=== PATIENT | male | born 1945 | race Caucasian/White ===

== ENCOUNTER 2017-09-05 13:40 | Emergency (ER) | payer OTHER | END 2017-09-05 15:46 | disposition home or self-care (01) | LOC: D.ER 13:40 | DX: T18.128A Food in esophagus causing other injury, initial encounter (principal); X58.XXXA Exposure to other specified factors, initial encounter; Y93.89 Activity, other specified; Y92.019 Unspecified place in single-family (private) house as the place of occurrence of the external cause; R13.10 Dysphagia, unspecified; J44.9 Chronic obstructive pulmonary disease, unspecified; J45.909 Unspecified asthma, uncomplicated; F17.200 Nicotine dependence, unspecified, uncomplicated ==

== ENCOUNTER 2019-09-13 03:34 | Emergency (ER) | payer OTHER ==
[~2019-09-13] VITALS: Ht 180.3 cm; Wt 88.6 kg
[2019-09-13 03:37] VITALS: Ht 180.3 cm; Wt 88.6 kg
[2019-09-13] MEDS ORDERED: NORVASC5 MG PO (03:39)
[2019-09-13] MEDS ORDERED: RANITIDINE HCL150 M1 PO (03:39)
[2019-09-13 04:18] LABS: BASOPHILS 1.3 % (0-2); HEMATOCRIT 43.6 % (42.0-54.0); IMMATURE GRANULOCYTES 0.4 % (0-5); LYMPHOCYTES 24.1 % (15-50); MCH 29.9 pg (26.0-34.0); MCHC 34.4 g/dL (31.0-37.0); MCV 86.9 fL (80.0-100.0); MEAN PLATELET VOLUME 8.9 fL (7.4-10.4); MONOCYTES 10.1 % (2-11); NEUTROPHILS 57.1 % (40-80); PLATELET COUNT 287 10x3/uL (130-400); RBC 5.02 10x6/uL (4.20-6.10); RDW 13.7 % (11.5-14.5); WBC 10.4 10x3/uL (4.8-10.8)
[2019-09-13 04:38] LABS: ANION GAP 13.8 mmol/L (8-16); CALCIUM 8.6 mg/dL (8.5-10.1); CARBON DIOXIDE 25.9 mmol/L (21.0-32.0); CREATININE - SERUM 1.1 mg/dL (0.6-1.3); POTASSIUM - SERUM 3.7 mmol/L (3.5-5.1); PROTIME 13.2 SECONDS (11.6-15.0)
[2019-09-13 04:44] LABS: ALBUMIN 3.5 g/dL (3.4-5.0); BILIRUBIN - TOTAL 0.24 mg/dL (0.2-1.3); MAGNESIUM - SERUM 1.9 mg/dL (1.8-2.4); PROTEIN - SERUM 7.2 g/dL (6.4-8.2)
[2019-09-13 11:00] VITALS: BP 119/52
== END 2019-09-13 11:30 | disposition other institution (70) ==
LOC: D.ER 03:34
PROVIDERS: Emergency Medicine
DX: K92.2 Gastrointestinal hemorrhage, unspecified (principal); Z86.010 Personal history of colon polyps; I10 Essential (primary) hypertension